=== PATIENT | male | born 1950 | race Caucasian/White ===

== ENCOUNTER 2023-05-24 20:06 | Emergency (ER) | payer BC, SELFPAY ==
[2023-05-24 20:08] VITALS: BP 167/80
[2023-05-24 21:00] LABS: % Basophils 0.4 % (0-2); % Immature Granulocytes 0.5 % (0-0.5); % Lymphocytes 7.4 % (20.5-51.1); % Neutrophils 82.7 % (42.2-75.2); Absolute Basophils 0.1 10^3/uL (0-0.2); Absolute Immature Granulocytes 0.1 10^3/uL (0-0.05); Absolute Lymphocytes 0.9 10^3/uL (1.2-3.4); Absolute Monocytes 1.1 10^3/uL (0.1-0.6); Absolute Neutrophils 10.1 10^3/uL (1.4-6.5); Hematocrit 38.1 % (39.0-52.0); Hemoglobin 12.9 g/dL (13.0-18.0); Mean Corp Hgb Conc. 33.9 g/dL (33.0-37.0); Mean Corpuscular Hgb 29.5 pg (27.0-31.0); Mean Corpuscular Volume 87.2 fL (80.0-94.0); Nucleated Red Blood Cells % 0 % (-); Platelet Count 210 10^3/uL (130-400); Red Blood Cell Count 4.37 10^6/uL (4.70-6.10); Red Cell Dist. Width 15.4 % (11.5-14.5); White Blood Cell Count 12.2 10^3/uL (4.8-10.8)
[2023-05-24 21:10] LABS: Lactic Acid 1.1 mmol/L (0.7-2.0)
[2023-05-24 21:14] LABS: ALT (SGPT) 19 U/L (0-50); AST (SGOT) 28 U/L (17-59); Albumin 4.3 g/dl (3.5-5.0); Alkaline Phosphatase 73 U/L (38-126); Blood Urea Nitrogen 17 mg/dl (9-20); Calcium 9.2 mg/dl (8.4-10.2); Carbon Dioxide 29 mmol/L (22-30); Chloride 101 mmol/L (98-107); Glucose 97 mg/dl (70-99); Potassium 3.6 mmol/L (3.5-5.1); Sodium 138 mmol/L (135-145); Total Bilirubin 0.8 mg/dl (0.2-1.3); Total Protein 7.3 g/dl (6.3-8.2); eGFR > 60.00
[2023-05-24 21:21] LABS: COVID-19 Antigen Negative (Negative)
[2023-05-24 22:10] VITALS: BP 131/61; BMI 28.3
--- NOTE | 2023-05-24 22:21 | ED.GENMED ---
History of Present Illness
<TEGAN Covarrubias - Last Filed: 05/25/23 03:27>
General
Chief Complaint: Throat Problem
Source: patient
Exam Limitations: none
Time Seen by Provider: 05/24/23 22:06
Nursing documentation reviewed up to this point in time: agreed with
Travel History
Have you had any contact with someone who has COVID-19?: No
Do you have any symptoms of coronavirus? Fever > 100 degrees, chills, cough, shortness of breath, sore throat, loss of taste or smell, muscle aches, or headache?: Yes
Symptoms:: sore throat and cough
History of Present Illness
History of Present Illness:
This is a 72 year old male with a PMH of CAD, CHF, atrial fibrillation, and HLD, who presents to the ED c/o sore throat x 3 days. Pt states the pain is localized to the left side of his throat and he has been having lozenges to help soothe the pain.
Today, he woke up with a productive cough and has been producing a significant amount of yellow-green sputum. Pt's states around 7:30 pm, pt was looking pale so she took his temperature and it was 102.2 F. She gave him two tylenol 3 hours ago
which has helped his fever. Pt has also had an associated PATEL today. He denies any chills, CP, SOB, nasal congestion, abdominal pain, nausea, vomiting, diarrhea, constipation, lightheadedness or dizziness.
Pt is a former smoker and denies any alcohol or drug use. 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
Past History
<TEGAN Covarrubias - Last Filed: 05/25/23 03:27>
Past History
ED Past Medical History: Arrthythmia (A fib), CAD, [place], Hyperthyroidism and Other (Status postcardiac arrest from ventricular dysrhythmia/MT)
ED Past Surgical History: Cardiac (stent)
Social History
Tobacco: Former smoker
Alcohol: None
Drug: None
Personal:
Living: with family
Family History
Family History: Other (reviewed and non-contributory)
Review of Systems
<Cuong Hodgson [facility] - Last Filed: 05/25/23 03:27>
Review of Systems
Allergies reviewed?: Yes
Other source history: family
All Other Systems: ROS reviewed and negative except as documented in HPI and ROS
Constitutional: Reports fever; Denies chills
EENT: Reports sore throat
Respiratory: Reports cough (productive); Denies trouble breathing
Cardiac: Reports no symptoms; Denies chest pain
ABD/GI: Reports no symptoms; Denies abdominal pain, nausea, vomiting, diarrhea or constipated
: Reports no symptoms
Musculoskeletal: Reports no symptoms
Skin: Reports no symptoms
Neurological: Reports headache; Denies dizzy
Psychiatric: Reports no symptoms
Phy Exam
<Cuong Hodgson [facility] - Last Filed: 05/25/23 03:27>
General Physical Exam
General Presentation: no apparent distress
General age: appears stated age
General Skin: warm and dry
General Habitus: normal
General Mental: alert
General Hydration: appears well hydrated
ENT Exam
ENT Exam: neck supple, normocephalic, pharyngeal erythema, swallowing well and other (No tonsillar exudates, uvula is midline, no tonsillar enlargement)
Eye Exam
Eye Exam: PERRL
Cardiovascular Exam
Cardiovascular Exam: regular rate/rhythm, no edema, no murmur and normal peripheral pulses
Heart Sounds: normal
Pulmonary Exam
Pulmonary Exam: no respiratory distress, no rales, no crackles, no rhonchi and generalized wheezing
Oxygen Status: room air
Cough: productive cough
Gastrointestinal Exam
Gastrointestinal Exam: normal bowel sounds, non tender, soft and non distended
Neurological Exam
Neurological Exam: alert and oriented x3
Musculoskeletal Exam
Musculoskeletal Exam: full ROM and no edema
Skin Exam
Skin Exam: normal color and warm/dry
Psychiatric Exam
Psychiatric Exam: normal mood/affect
Course
<TEGAN Covarrubias - Last Filed: 05/25/23 03:27>
Orders/Labs/Results
Orders:
Orders
05/24/23 20:15
Electrocardiogram (*1) Urgent
Reason for Study: Other
Other Reason for Exam: Possible Sepsis
EKG- Treatment ONCE
CR Chest - 2 Views Urgent
Comment:
Reason For Exam: suspected infection
O2 Therapy [RESP] Urgent
Titrate/Wean O2 to maintain O2 sat greater than (%): 93
Special Instructions: TO MAINTAIN CONTINUOUS O2 SATS > OR = 93%
Pulse Ox/cont/shift [RESP] Urgent
Quantity: 1
Special Instructions: CONTINUOUS
05/24/23 20:44
COVID-19 Antigen Urgent
Source: Nasal Swab
Comprehensive Metabolic Panel Urgent
Influenza A+B Rapid Molecular Urgent
REGGIE Source: Nasal Swab
Specimen Description:
Date Specimen was Collected: 05/24/23
Time Specimen was Collected: 20:16
Rapid Strep Group A Urgent
REGGIE Source: Throat/Pharynx
Specimen Description:
Date Specimen was Collected: 05/24/23
Time Specimen was Collected: 20:16
05/24/23 20:45
Complete Blood Count/With Diff Urgent
Lactic Acid Q4H
Comment: ON ICE, CANCEL 2ND ORDER IF FIRST LACTIC ACID LEVEL <2
Blood Culture Q30M
REGGIE Source: Blood/Venous
Specimen Description:
Comment: FROM 2 SEPARATE SITES
Blood Culture Q30M
REGGIE Source: Blood/Venous
Specimen Description:
Comment: FROM 2 SEPARATE SITES
05/24/23 22:50
Dexamethasone Pf [Decadron] 10 mg PO NOW STA
Doxycycline [Vibramycin] 100 mg PO NOW STA
Ipratropium/Albuterol Sulfate [Duoneb] 3 ml INH R NOW STA
Abnormal Lab Results
05/24/23
20:45
WBC 12.2 H 10^3/uL
(4.8-10.8)
RBC 4.37 L 10^6/uL
(4.70-6.10)
Hgb 12.9 L g/dL
(13.0-18.0)
Hct 38.1 L %
(39.0-52.0)
RDW 15.4 H %
(11.5-14.5)
Abs Immat Gran (auto) 0.1 H 10^3/uL
(0-0.05)
Absolute Neuts (auto) 10.1 H 10^3/uL
(1.4-6.5)
Absolute Lymphs (auto) 0.9 L 10^3/uL
(1.2-3.4)
Absolute Monos (auto) 1.1 H 10^3/uL
(0.1-0.6)
Neutrophils % 82.7 H %
(42.2-75.2)
Lymphocytes % 7.4 L %
(20.5-51.1)
05/24/23 20:45
05/24/23 20:44
Vital Signs
Initial and Last Documented VS:
Initial Vital Signs
Temp Pulse Resp BP Pulse Ox
99.1 F 90 20 167/80 94
05/24/23 20:08 05/24/23 20:08 05/24/23 20:08 05/24/23 20:08 05/24/23 20:08
Last Documented Vital Signs
Temp Pulse Resp BP Pulse Ox
98.9 F 70 16 131/61 92
05/24/23 22:10 05/24/23 22:10 05/24/23 22:10 05/24/23 22:10 05/24/23 22:10
<Nilo Daugherty, DO - Last Filed: 05/24/23 22:57>
Orders/Labs/Results
Orders:
Orders
05/24/23 20:15
Electrocardiogram (*1) Urgent
Reason for Study: Other
Other Reason for Exam: Possible Sepsis
EKG- Treatment ONCE
CR Chest - 2 Views Urgent
Comment:
Reason For Exam: suspected infection
O2 Therapy [RESP] Urgent
Titrate/Wean O2 to maintain O2 sat greater than (%): 93
Special Instructions: TO MAINTAIN CONTINUOUS O2 SATS > OR = 93%
Pulse Ox/cont/shift [RESP] Urgent
Quantity: 1
Special Instructions: CONTINUOUS
05/24/23 20:44
COVID-19 Antigen Urgent
Source: Nasal Swab
Comprehensive Metabolic Panel Urgent
Influenza A+B Rapid Molecular Urgent
REGGIE Source: Nasal Swab
Specimen Description:
Date Specimen was Collected: 05/24/23
Time Specimen was Collected: 20:16
Rapid Strep Group A Urgent
REGGIE Source: Throat/Pharynx
Specimen Description:
Date Specimen was Collected: 05/24/23
Time Specimen was Collected: 20:16
05/24/23 20:45
Complete Blood Count/With Diff Urgent
Lactic Acid Q4H
Comment: ON ICE, CANCEL 2ND ORDER IF FIRST LACTIC ACID LEVEL <2
Blood Culture Q30M
REGGIE Source: Blood/Venous
Specimen Description:
Comment: FROM 2 SEPARATE SITES
Blood Culture Q30M
REGGIE Source: Blood/Venous
Specimen Description:
Comment: FROM 2 SEPARATE SITES
05/24/23 22:50
Dexamethasone Pf [Decadron] 10 mg PO NOW STA
Doxycycline [Vibramycin] 100 mg PO NOW STA
Ipratropium/Albuterol Sulfate [Duoneb] 3 ml INH R NOW STA
Abnormal Lab Results
05/24/23
20:45
WBC 12.2 H 10^3/uL
(4.8-10.8)
RBC 4.37 L 10^6/uL
(4.70-6.10)
Hgb 12.9 L g/dL
(13.0-18.0)
Hct 38.1 L %
(39.0-52.0)
RDW 15.4 H %
(11.5-14.5)
Abs Immat Gran (auto) 0.1 H 10^3/uL
(0-0.05)
Absolute Neuts (auto) 10.1 H 10^3/uL
(1.4-6.5)
Absolute Lymphs (auto) 0.9 L 10^3/uL
(1.2-3.4)
Absolute Monos (auto) 1.1 H 10^3/uL
(0.1-0.6)
Neutrophils % 82.7 H %
(42.2-75.2)
Lymphocytes % 7.4 L %
(20.5-51.1)
05/24/23 20:45
05/24/23 20:44
Vital Signs
Initial and Last Documented VS:
Initial Vital Signs
Temp Pulse Resp BP Pulse Ox
99.1 F 90 20 167/80 94
05/24/23 20:08 05/24/23 20:08 05/24/23 20:08 05/24/23 20:08 05/24/23 20:08
Last Documented Vital Signs
Temp Pulse Resp BP Pulse Ox
98.9 F 70 16 131/61 92
05/24/23 22:10 05/24/23 22:10 05/24/23 22:10 05/24/23 22:10 05/24/23 22:10
<TEGAN Covarrubias - Last Filed: 05/25/23 03:27>
*Critical Care Note
Total Time (30-74mins, 75-104mins- exclusive of procedures): Not Applicable
ED Attending Note
<TEGAN Covarrubias - Last Filed: 05/25/23 03:27>
-
Portions of this chart may have been created with voice recognition software.� Occasional wrong word or��sound alike� substitutions may have occurred due to the inherent limitations of voice recognition software.
<Nilo Daugherty DO - Last Filed: 05/24/23 22:57>
ED Attending Note
Patient seen and examined by attending physician: Yes
I performed the substantive portion of visit, reviewed & personally made and approve the management plan that is documented in note by myself or STARR.: Yes
ED Attending Note:
I have seen and evaluated the patient with a [id number] encounter. I have spoken to the advance practicer provider and involved in the medical history, the physical exam, medical decision making.
Evaluation and management service: agree unless noted differently below.
Results interpretation: agree unless noted differently below.
Focused HPI: 72-year-old male presenting with cough and fever. This started with sore throat. Tylenol is helping somewhat but he is developing productive cough and wheezing.
Physical exam: Posterior pharynx erythematous. Postnasal drip. Uvula midline. No exudate. Expiratory wheezing noted
Medical Decision Making: Chest x-ray clear. Strep throat negative. Given his smoking history and his fever, will start doxycycline as possible bronchitis. Will give dose of Decadron and DuoNeb
Discharge Plan
Departure
Patient Disposition: Home (Routine Discharge)
Date of Disposition: 05/24/23
Time of Disposition: 22:55
Patient with high blood pressure during this ER visit?: No
Discharge Problem:
Bronchitis
Instructions: Asthma, Adult ED
Prescriptions:
New
doxycycline hyclate 100 mg capsule
100 mg PO BID Qty: 14 0RF
methylprednisolone [Medrol (Arley)] 4 mg tablets,dose pack
See Rx Instructions .ROUTE .COMPLEX Qty: 21 0RF
Rx Instructions:
orally per package directions
albuterol sulfate [ProAir HFA] 90 mcg/actuation Hfa Aerosol Inhaler
1 puff INHALATION Q4HPRN PRN (Reason: shortness of breath) Qty: 8.5 0RF
No Action
metoprolol succinate 50 mg Tablet Extended Release 24 Hr
50 mg PO BID
clopidogrel 75 mg Tablet
75 mg PO DAILY
apixaban 5 mg Tablet
5 mg PO BID
trazodone 50 mg tablet
50 mg PO HS
lisinopril 2.5 mg Tablet
2.5 mg PO DAILY Qty: 30 0RF
furosemide [Lasix] 20 mg tablet
20 mg PO DAILY Qty: 30 0RF
tadalafil 20 mg Tablet
20 mg PO DAILY PRN (Reason: per order)
atorvastatin 80 mg Tablet
80 mg PO HS Qty: 30 0RF
ascorbic acid (vitamin C) [Vitamin C] 500 mg Tablet
500 mg PO DAILY Qty: 30 0RF
pantoprazole 40 mg Tablet,Delayed Release (Dr/Ec)
40 mg PO BID Qty: 60 0RF
Activity Restrictions/Additional Instructions:
Please return for any worsening symptoms.
You may return at any time if you have further concerns.
Please follow up with your doctor at the first available appointment, preferably this week.
Thank you for choosing [facility].
Interventions
Interventions:
*Risk Screen - Suicide Last Done: 05/24/23 20:08
*General Assessment Last Done: 05/24/23 20:08
*Neglect/Abuse Screening Last Done: 05/24/23 20:08
ED- Fall Risk Assessment Last Done: 05/24/23 20:08
*ED COVID-19 Vaccine History Last Done: 05/24/23 20:08
*Nursing Disposition Last Done: 05/24/23 23:30
ED-EENT Assessment Last Done: 05/24/23 22:10
ED- Pulmonary Assessment Last Done: 05/24/23 22:10
Discharge Date and Time
Discharge Date/Time: 05/24/23 23:36
[2023-05-24] MEDS: DUONEB 3 ML INH (23:07)
[2023-05-24] MEDS: DECADRON 10 MG PO (23:07)
[2023-05-24] MEDS: VIBRAMYCIN 100 MG PO (23:07)
== END 2023-05-24 23:36 | disposition home or self-care (01) ==
LOC: EMR 20:06
PROVIDERS: Emergency Medicine; EMERGENCY PHYSICIAN Student in an Organized Health Care Education/Training Program; FAMILY PHYSICIAN Family Medicine
DX: J40 Bronchitis, not specified as acute or chronic (principal); Z11.52 Encounter for screening for COVID-19; Z87.891 Personal history of nicotine dependence; Z95.5 Presence of coronary angioplasty implant and graft
CPT/HCPCS: 99285; 94640; 71046; 80053; 83605; 85025; 87040; 87070; 87502; 87811; 87880; 93005

== ENCOUNTER 2023-11-09 08:15 | Emergency (ER) | payer BC, SELFPAY ==
[2023-11-09 08:20] VITALS: BP 184/83
--- NOTE | 2023-11-09 08:51 | ED.GENMED ---
History of Present Illness
General
Chief Complaint: Breathing Problem
Source: patient
Exam Limitations: none
Time Seen by Provider: 11/09/23 08:37
Nursing documentation reviewed up to this point in time: agreed with
History of Present Illness
History of Present Illness:
Patient is a 73-year-old male [place] , A-fib CHF cardiac arrest CAD hypertension hyperlipidemia on anticoagulation who presents to the ER for evaluation of shortness of breath. Patient reports he started with symptoms of COVID on Saturday and tested
positive yesterday. He had a fever several days ago and it was 101. He has had cough nasal congestion but has had difficulty sleeping and has had little shortness of breath. The shortness of breath is what brought patient to the ER today. He is
drinking fluids. He was taking Tylenol as needed and Coricidin, blood pressure safe type as needed
Past History
Past History
ED Past Medical History: Arrthythmia (A fib), CAD, [place], Hyperthyroidism and Other (Status postcardiac arrest from ventricular dysrhythmia/[place])
ED Past Surgical History: Cardiac (stent)
Social History
Tobacco: Former smoker
Alcohol: None
Drug: None
Personal:
Living: with family
Family History
Family History: Other (reviewed and non-contributory)
Review of Systems
Review of Systems
Allergies reviewed?: Yes
All Other Systems: ROS reviewed and negative except as documented in HPI and ROS
Constitutional: Reports fever
EENT: Reports no symptoms
Respiratory: Reports cough and trouble breathing
ABD/GI: Reports no symptoms; Denies abdominal pain, nausea or vomiting
: Reports no symptoms
Musculoskeletal: Reports no symptoms
Skin: Reports no symptoms
Neurological: Reports no symptoms
Psychiatric: Reports no symptoms
Phy Exam
General Physical Exam
General Presentation: no apparent distress
General age: appears stated age
General Skin: warm and dry
General Habitus: normal and elderly
General Mental: alert
General Hydration: appears well hydrated
Cardiovascular Exam
Cardiovascular Exam: regular rate/rhythm, no murmur and normal peripheral pulses
Pulmonary Exam
Pulmonary Exam: lungs clear, no respiratory distress, no rales and no rhonchi
Neurological Exam
Neurological Exam: alert and oriented x3
Musculoskeletal Exam
Musculoskeletal Exam: full ROM
Skin Exam
Skin Exam: normal color and warm/dry
Psychiatric Exam
Psychiatric Exam: normal mood/affect
Scores
Heart Failure Risk
Heart Failure Risk Score: Not Applicable
Course
Orders/Labs/Results
Orders:
Orders
11/09/23 08:51
Chest [CR Chest - 2 Views ] Urgent
Comment:
Reason For Exam: cough/sob COVID+
Vital Signs
Initial and Last Documented VS:
Initial Vital Signs
Temp Pulse Resp BP Pulse Ox
98.6 F 61 20 184/83 95
11/09/23 08:20 11/09/23 08:20 11/09/23 08:20 11/09/23 08:20 11/09/23 08:20
Last Documented Vital Signs
Temp Pulse Resp BP Pulse Ox
98.6 F 61 20 184/83 94
11/09/23 08:20 11/09/23 08:20 11/09/23 08:20 11/09/23 08:20 11/09/23 09:20
MDM/Problems Addressed
Differential Diagnosis Includes:
not limited to COVID
MDM/Problems Addressed:
Patient tested positive for COVID at home and presented here with some shortness of breath. Patient reports he has had difficulty with cough and shortness of breath at nighttime. Patient presents today awake alert no acute distress he is not
hypoxic his lungs are clear he is afebrile he is in no acute distress nontachypneic nontachycardic and well-appearing. Will check chest x-ray for bacterial pneumonia however patient is very well-appearing he has used inhalers in the past will DC
with an inhaler as needed. We did discuss Edda he is on medications which react and because he is very well-appearing we will hold off on this medication as he is on cardiac meds and blood thinners for significant cardiac history.
He is agreeable with this plan of care will DC with supportive care close outpatient follow-up.
*Radiology
Radiology exam reviewed: radiology read reviewed
*Pulse Oximetry
Patient hypoxic: no
*Critical Care Note
Total Time (30-74mins, 75-104mins- exclusive of procedures): Not Applicable
ED Attending Note
-
Portions of this chart may have been created with voice recognition software.� Occasional wrong word or��sound alike� substitutions may have occurred due to the inherent limitations of voice recognition software.
Discharge Plan
Departure
Patient Disposition: Home (Routine Discharge)
Date of Disposition: 11/09/23
Time of Disposition: 09:47
Patient with high blood pressure during this ER visit?: Yes
Condition: Fair
Discharge Problem:
COVID-19
Instructions: COVID-19 ED
Prescriptions:
New
albuterol sulfate 90 mcg/actuation HFA aerosol inhaler
2 inh inhalation Q6H PRN (Reason: shortness of breath or wheezing) Qty: 6.7 0RF
No Action
metoprolol succinate 50 mg Tablet Extended Release 24 Hr
50 mg PO BID
clopidogrel 75 mg Tablet
75 mg PO DAILY
apixaban 5 mg Tablet
5 mg PO BID
trazodone 50 mg tablet
50 mg PO HS
lisinopril 2.5 mg Tablet
2.5 mg PO DAILY Qty: 30 0RF
furosemide [Lasix] 20 mg tablet
20 mg PO DAILY Qty: 30 0RF
tadalafil 20 mg Tablet
20 mg PO DAILY PRN (Reason: per order)
doxycycline hyclate 100 mg capsule
100 mg PO BID Qty: 14 0RF
methylprednisolone [Medrol (Arley)] 4 mg tablets,dose pack
See Rx Instructions .ROUTE .COMPLEX Qty: 21 0RF
Rx Instructions:
orally per package directions
albuterol sulfate [ProAir HFA] 90 mcg/actuation Hfa Aerosol Inhaler
1 puff INHALATION Q4HPRN PRN (Reason: shortness of breath) Qty: 8.5 0RF
atorvastatin 80 mg Tablet
80 mg PO HS Qty: 30 0RF
ascorbic acid (vitamin C) [Vitamin C] 500 mg Tablet
500 mg PO DAILY Qty: 30 0RF
pantoprazole 40 mg Tablet,Delayed Release (Dr/Ec)
40 mg PO BID Qty: 60 0RF
Referrals:
Danny Jimenez MD [Family Provider] -
Activity Restrictions/Additional Instructions:
As discussed stay well-hydrated and get plenty of rest. You May take Tylenol as needed. As discussed a prescription for albuterol inhaler sent to pharmacy you may use as 2 puffs every 6 hours as needed. Follow-up with your family doctor the
next several days for reevaluation of your symptoms and return if any worsening of symptoms
Interventions
Interventions:
*Risk Screen - Suicide Last Done: 11/09/23 08:20
*General Assessment Last Done: 11/09/23 08:20
*Neglect/Abuse Screening Last Done: 11/09/23 08:20
ED- Fall Risk Assessment Last Done: 11/09/23 09:17
*ED COVID-19 Vaccine History Last Done: 11/09/23 09:17
ED- Cardiac Assessment Last Done: 11/09/23 09:17
ED- Pulmonary Assessment Last Done: 11/09/23 09:17
Discharge Date and Time
Print Language: THAI
[2023-11-09 09:17] VITALS: BMI 27.7
[2023-11-09 09:58] VITALS: BP 161/75
== END 2023-11-09 09:59 | disposition home or self-care (01) ==
LOC: EMR 08:15
PROVIDERS: EMERGENCY PHYSICIAN Emergency Medicine; FAMILY PHYSICIAN Family Medicine
DX: U07.1 COVID-19 (principal); I25.2 Old myocardial infarction; I11.0 Hypertensive heart disease with heart failure; I50.9 Heart failure, unspecified; I48.91 Unspecified atrial fibrillation; I25.10 Atherosclerotic heart disease of native coronary artery without angina pectoris; E78.00 Pure hypercholesterolemia, unspecified; Z79.01 Long term (current) use of anticoagulants; Z87.891 Personal history of nicotine dependence; Z95.5 Presence of coronary angioplasty implant and graft
CPT/HCPCS: 99283; 71046